=== PATIENT | female | born 1955 | race Two or more races ===

== ENCOUNTER → 2016-09-24 | Outpatient (CLI) | payer OTHER ==
--- NOTE | ~2016-09-24 | US85 ---
[facility] A Service of [facility] RADIOLOGY TEXT RESULTS PATIENT: LAURA CLAROS LOCATION: CNIV : 55 UNIT #: [id number] AGE: [address]: ROBERTO PALUMBO APRN SEX: F ORDER DR: [id number] [facility] [address]. [place], [place] [address] [id number] O MR#: [id number] Acc #: [id number] NAME: LAURA CLAROS : 1955 SEX: F STUDY DATE/TIME: 09/24/2016 15:30 UNIT: CNIV ROOM: STUDY DESCRIPTION: LE Veins Unilat or Ltd Stdy Ordering Physician: Mike Palumbo Aprn Primary Care Physician: Ton Merino M.D. MEDICAL IMAGING REPORT This report is preliminary unless electronic signature is present EXAM Left lower extremity venous ultrasound HISTORY Left lateral calf mass for 1 month. Left upper thigh mass for 3 weeks and mastectomy for 3 weeks. No injury. TECHNIQUE Ultrasound examination left lower extremity veins was performed from the groin to the calf with rubio-scale, color Doppler and spectral Doppler evaluation. FINDINGS The veins are patent and compressible. No DVT or SVT. Evaluation of the areas of reported clinical concern, as indicated by the patient, in the thigh, knee, and calf demonstrate no abnormality. Suggest further management based upon clinical assessment. IMPRESSION Negative left lower extremity venous ultrasound. No DVT or SVT. No abnormalities identified in the regions of reported clinical concern as indicated by the patient. Suggest further management based on clinical assessment. Dictated by... Jayme Knutson M.D. THIS IS AN ELECTRONICALLY VERIFIED REPORT Jayme Knutson M.D. at 09/25/2016 2:34 PM DFL/pcl [facility] A Service of [facility] RADIOLOGY TEXT RESULTS PATIENT: LAURA CLAROS LOCATION: CNIV : 55 UNIT #: [id number] AGE: [address]: ROBERTO PALUMBO APRN SEX: F ORDER DR: TD: 09/24/2016 23:14 JOB #: [id number] MEDICAL IMAGING REPORT Page 1 of 1 COPY
== END | disposition home or self-care (01) ==
LOC: CNIV 15:15
DX: R22.42 Localized swelling, mass and lump, left lower limb (principal)
CPT/HCPCS: 93971